=== PATIENT | male | born 1945 | race Caucasian/White ===

== ENCOUNTER 2018-01-27 11:59 | Observation (INO) ==
[2018-01-27 18:04] LABS: Baso % (Auto) 0.5 % (0.0-2.0); Eos # (Auto) 0.6 th/mm3 (0.0-0.4); Eos % (Auto) 8.5 % (0.0-4.0); Hematocrit 40.7 % (39.0-51.0); Hemoglobin 14.4 gm/dL (13.0-17.0); Lymph # (Auto) 1.3 th/mm3 (1.0-4.8); Lymph % (Auto) 19.8 % (9.0-44.0); Mean Corpuscular HGB Conc 35.3 % (32.0-36.0); Mean Corpuscular Hemoglobin 33.9 pg (27.0-34.0); Mean Corpuscular Volume 95.9 fL (80.0-100.0); Mean Platelet Volume 8.5 fL (7.0-11.0); Mono # (Auto) 0.5 th/mm3 (0.0-0.9); Mono % (Auto) 7.1 % (0.0-8.0); Neut # (Auto) 4.2 th/mm3 (1.8-7.7); Neut % (Auto) 64.1 % (16.0-70.0); Platelet Count 212 th/mm3 (150-450); Red Blood Count 4.24 mil/mm3 (4.50-5.90); Red Cell Distribution Width 14.1 % (11.6-17.2); White Blood Count 6.5 th/mm3 (4.0-11.0)
[2018-01-27 18:21] LABS: Albumin 3.9 g/dL (3.4-5.0); Anion Gap 10 meq/L (5-15); Aspartate Aminotransferase 27 U/L (15-37); Blood Urea Nitrogen 11 mg/dL (7-18); Calcium 9.6 mg/dL (8.5-10.1); Carbon Dioxide 25.7 meq/L (21.0-32.0); Chloride 103 meq/L (98-107); Glomerular Filtration Rate 77 mL/min (>89); Glucose,Random 109 mg/dL (74-106); Potassium 3.6 meq/L (3.5-5.1); Sodium 139 meq/L (136-145)
[2018-01-27 18:22] LABS: Alanine Aminotransferase 37 U/L (12-78)
[2018-01-27 18:25] LABS: Alkaline Phosphatase 95 U/L (45-117); Total Protein 8.2 g/dL (6.4-8.2)
--- NOTE | 2018-01-27 18:59 | CT ---
EXAM DATE: 01/27/2018 6:52 PM EDT AGE/SEX: 72 years / Male INDICATIONS: Dyspnea for 2-3 weeks CLINICAL DATA: This is the patient's initial encounter. Patient reports that signs and symptoms have been present for 2 weeks and indicates a pain score of 3/10. MEDICAL/SURGICAL HISTORY: Diabetes. Hypertension. None. RADIATION DOSE: 11.05 CTDI (mGy) COMPARISON: No prior exams available for comparison. TECHNIQUE: Volumetric scanning was performed using a multi-row detector CT scanner during bolus infu jayme of 74 ml Omnipaque 350 (iohexol) nonionic water-soluble contrast as a single exam dose. The garrett a was post processed with a variety of visualization algorithms including full volume maximum intensi ty projection and sliding thin slab reformation. Using automated exposure control and adjustment of the mA and/or kV according to patient size, radiation dose was kept as low as reasonably achievable t o obtain optimal diagnostic quality images. DICOM format image data is available electronically for review and comparison. FINDINGS: Pulmonary Arteries: No filling defects are seen in the pulmonary arteries out to the subsegmental ve ssels. The left and right pulmonary arteries are normal in diameter. Lung: No infiltrates seen. Effusion: None. Mediastinum: Dense atherosclerotic calcifications in the coronaries. Other: The axilla is unremarkable. CONCLUSION: No evidence of pulmonary embolism. Electronically signed by: Sander Valderrama MD 01/27/2018 6:58 PM EDT
--- NOTE | 2018-01-27 19:00 | ED ---
HPI General Chief Complaint: Shortness of Breath/Dyspnea Stated Complaint: sob Time Seen by Provider: 01/27/18 16:57 Source: patient, family and old records reviewed History of Present Illness Is a 72-year-old man who presents to the emergency department complaining of shortness of breath and weakness ongoing for the past couple weeks. He states that he flew to [facility] and took an [employer] cruise on 24 December. He got a little bit sick with some cough cold symptoms. He has had more shortness of breath since he got back. He sees a painting contractor for sleep apnea. He took a Z -Flavio last week which did not really make a difference. He has been having a little bit of worsening lower extremity edema. He saw his painting contractor again and put him on Lasix 2 days ago. Lower extremity swelling is a little bit improved he still significant shortness of breath. He has prominent orthopnea as well. He is obese. He is an extensive smoking history but quit about 6 years ago. No known diagnosis of COPD. Has not been hospitalized for breathing difficulties previously. Related Data Home Medications Medication Instructions Recorded Confirmed amlodipine 10 mg PO DAILY 01/27/18 01/27/18 aspirin 325 mg PO DAILY 01/27/18 01/27/18 clonidine HCl 0.2 mg PO DAILY 01/27/18 01/27/18 coenzyme Q10 [CoQ-10] 100 mg PO DAILY 01/27/18 01/27/18 cyanocobalamin-cobamamide [B-12 500 mcg 01/27/18 Plus] furosemide [Lasix] 40 mg PO DAILY 01/27/18 01/27/18 losartan 100 mg PO DAILY 01/27/18 01/27/18 metformin 500 mg PO DAILY 01/27/18 01/27/18 montelukast [Singulair] 10 mg PO DAILY 01/27/18 01/27/18 omega-3 fatty acids [Fish Oil 3,000 mg PO DAILY 01/27/18 01/27/18 Concentrate] potassium chloride 10 meq PO DAILY 01/27/18 01/27/18 simvastatin 10 mg PO QPM 01/27/18 01/27/18 Allergies Allergy/AdvReac Type Severity Reaction Status Date / Time cephalexin Allergy Severe Itching Unverified 01/27/18 12:10 doxycycline Allergy Severe Itching Unverified 01/27/18 12:10 Penicillins Allergy Severe Itching Verified 01/27/18 12:10 Review of Systems ROS Unobtainable All other systems reviewed negative except as stated in [facility] Medical History Medical History Diabetes (Acute) Hypercholesteremia (Acute) Hypertension (Acute) Sleep apnea (Acute) Surgical History Surgical History History of bladder surgery (Acute) Hx of tonsillectomy (Acute) Social History Social History Substance History: No History of Abuse Smoking Status: Former smoker Tobacco Type: Cigarettes How Often Do You Have a Drink Containing Alcohol: 4 or more times a week Recent Travel in [facility] within the Last 8 Weeks: Yes Recent Out of Country Travel within the Last 8 Weeks: No Substance Abuse Detail Alcohol: Substance Use Status: Active Route Used Substance Abuse: By Mouth Substance Frequency: scotch daily Immunization History Tetanus Immunization: <5 Years Hx Influenza Vaccine This Season: Yes Exam Narrative Exam Narrative: GENERAL: An older 72-year-old man, obese, no acute distress. SKIN: Focused skin assessment warm/dry. HEAD: Atraumatic. Normocephalic. EYES: Pupils equal and round. No scleral icterus. No injection or drainage. ENT: No nasal bleeding or discharge. Mucous membranes pink and moist. NECK: Trachea midline. No JVD. CARDIOVASCULAR: Regular rate and rhythm. No murmur appreciated. RESPIRATORY: No accessory muscle use. Clear to auscultation. Breath sounds equal bilaterally. GASTROINTESTINAL: Abdomen soft, non-tender, nondistended. Hepatic and splenic margins not palpable. MUSCULOSKELETAL: No obvious deformities. Moderate pitting edema bilateral lower extremities. NEUROLOGICAL: Awake and alert. No obvious cranial nerve deficits. Motor grossly within normal limits. Normal speech. PSYCHIATRIC: Appropriate mood and affect; insight and judgment normal. Course Initial Documented Vital Signs Temperature 97.0 F L 01/27/18 12:05 Pulse Rate 74 01/27/18 12:05 Respiratory Rate 18 01/27/18 12:05 Blood Pressure 171/93 H 01/27/18 12:05 Pulse Oximetry 97 01/27/18 12:05 Last Documented Vital Signs Temperature 97.0 F L 01/27/18 12:05 Pulse Rate 71 01/27/18 17:45 Respiratory Rate 22 01/27/18 17:45 Blood Pressure 136/75 01/27/18 17:45 Pulse Oximetry 96 01/27/18 17:45 Medical Decision Making MDM Narrative Medical decision making narrative: 72-year-old male with shortness of breath, lower extremity edema, little bit of cough. He had recent upper respiratory illness but I do not think this is likely COPD. I hear any wheezing. His orthopnea and bilateral lower extremity edema and new onset CHF seems possible. BNP is not really elevated. Also risk for PE. Will check CT pulmonary angiogram. Reassess. Lab Data Lab results reviewed: Yes I reviewed the patient's lab results. Result diagrams: 01/27/18 17:35 01/27/18 17:35 Lab Results 01/27/18 01/27/18 01/27/18 Range/Units 17:35 17:35 17:35 WBC 6.5 (4.0-11.0) th/mm3 RBC 4.24 L (4.50-5.90) mil/mm3 Hgb 14.4 (13.0-17.0) gm/dL Hct 40.7 (39.0-51.0) % MCV 95.9 (80.0-100.0) fL MCH 33.9 (27.0-34.0) pg MCHC 35.3 (32.0-36.0) % RDW 14.1 (11.6-17.2) % Plt Count 212 (150-450) th/mm3 MPV 8.5 (7.0-11.0) fL Neut % (Auto) 64.1 (16.0-70.0) % Lymph % (Auto) 19.8 (9.0-44.0) % Yates % (Auto) 7.1 (0.0-8.0) % Eos % (Auto) 8.5 H (0.0-4.0) % Baso % (Auto) 0.5 (0.0-2.0) % Neut # (Auto) 4.2 (1.8-7.7) th/mm3 Lymph # (Auto) 1.3 (1.0-4.8) th/mm3 Yates # (Auto) 0.5 (0.0-0.9) th/mm3 Eos # (Auto) 0.6 H (0.0-0.4) th/mm3 Baso # (Auto) 0.0 (0.0-0.2) th/mm3 WBC Differential . Differential Comment Auto diff final Sodium 139 (136-145) meq/L Potassium 3.6 (3.5-5.1) meq/L Chloride 103 (98-107) meq/L Carbon Dioxide 25.7 (21.0-32.0) meq/L Anion Gap 10 (5-15) meq/L BUN 11 (7-18) mg/dL Creatinine 0.96 (0.60-1.30) mg/dL Estimated GFR 77 L (>89) mL/min Random Glucose 109 H (74-106) mg/dL Calcium 9.6 (8.5-10.1) mg/dL Total Bilirubin 0.9 (0.2-1.0) mg/dL AST 27 (15-37) U/L ALT 37 (12-78) U/L Alkaline Phosphatase 95 (45-117) U/L Troponin I Less than 0.02 L (0.02-0.05) ng/mL B-Natriuretic Peptide 37 (0-100) pg/mL Total Protein 8.2 (6.4-8.2) g/dL Albumin 3.9 (3.4-5.0) g/dL Imaging Data Radiologist's impression: ITS Impressions Chest CTA 01/27/18 17:26 CONCLUSION: No evidence of pulmonary embolism. CTA: No PE ECG Data Attestation: I personally reviewed and interpreted this ECG as follows: Interpretation: Normal sinus rhythm at a rate of 69, normal axis, normal intervals, no acute ischemia. Discharge Plan Discharge Disposition Patient Disposition: 30 Still Patient Physicians Team ED Provider: Gaston Gold Primary Care Provider: Travon Worley Rxs /Orders / Referrals /Forms Prescriptions: No Action montelukast [Singulair] 10 mg Tablet 10 mg PO DAILY RF: 0 clonidine HCl 0.2 mg Tablet 0.2 mg PO DAILY RF: 0 amlodipine 10 mg Tablet 10 mg PO DAILY RF: 0 losartan 100 mg Tablet 100 mg PO DAILY RF: 0 furosemide [Lasix] 40 mg Tablet 40 mg PO DAILY RF: 0 metformin 500 mg Tablet 500 mg PO DAILY RF: 0 omega-3 fatty acids [Fish Oil Concentrate] 1,000 mg Capsule 3,000 mg PO DAILY RF: 0 aspirin 325 mg Tablet 325 mg PO DAILY RF: 0 simvastatin 10 mg Tablet 10 mg PO QPM RF: 0 potassium chloride 10 mEq Tablet Extended Release 10 meq PO DAILY RF: 0 coenzyme Q10 [CoQ-10] 100 mg Capsule 100 mg PO DAILY RF: 0 cyanocobalamin-cobamamide [B-12 Plus] 5,000-100 mcg Tablet, Sublingual 500 mcg RF: 0 Discharge Interventions Interventions: Vital Signs Last Done: 01/27/18 17:45 Status ED Status: Pending Admission
[2018-01-27] MEDS ORDERED: Bisacodyl 10 MG Supp RECTAL PRN (20:08)
[2018-01-27] MEDS ORDERED: Temazepam 15 MG Capsule PO PRN (20:08)
[2018-01-27] MEDS: Heparin - SQ 10,000 UNITS/ML Vial SQ SCH (20:46)
--- NOTE | 2018-01-27 21:51 | ECG ---
Date Performed: 01/27/2018 Time Performed: 16:54:20 PTAGE: 72 years EKG: Sinus rhythm NORMAL ECG No significant change from prior electrocardiogram. PREVIOUS TRACING : 02/07/2015 18.22 DOCTOR: Hemanth Menjivar Interpretating Date/Time 01/27/2018 21:50:48
[2018-01-28] MEDS: Heparin - SQ 10,000 UNITS/ML Vial SQ SCH (09:10)
--- NOTE | 2018-01-28 10:30 | MB ---
cc: Jarrett Lloyd MD DATE: 01/28/2018 REASON FOR CONSULTATION: Possible congestive heart failure. HISTORY OF PRESENT ILLNESS: The patient is a 72-year-old white male with a history of hypertension, hyperlipidemia, diabetes, COPD, sleep apnea, who presented to the hospital with increasing shortness of breath. The patient states he has had troubles with dyspnea on exertion for the past several months, but his shortness of breath became more severe over the last couple of weeks after returning from a cruise to [place]. Chronically, he has had intermittent pedal edema, which is mostly dependent in nature, but has worsened slightly in the last couple of weeks. In addition, he has had trouble with orthopnea without paroxysmal nocturnal dyspnea. He denies chest pain, palpitations, dizziness, syncope, near syncope, fevers, cough, pleurisy. Since coming into the hospital, his shortness of breath has considerably improved. PAST MEDICAL HISTORY: 1. Hypertension. 2. Hyperlipidemia. 3. Diabetes. 4. Chronic obstructive pulmonary disease. 5. Sleep apnea. CARDIAC MEDICATIONS AT HOME: 1. Aspirin 325 mg daily. 2. Simvastatin 10 mg at bedtime. 3. Potassium chloride 10 mEq daily. 4. Furosemide 40 mg daily. 5. Losartan 100 mg daily. 6. Clonidine 0.2 mg daily. 7. Amlodipine 10 mg daily. ALLERGIES: CEPHALEXIN, DOXYCYCLINE, PENICILLINS. FAMILY HISTORY: The patient's father sustained 2 myocardial infarctions and eventually underwent coronary artery bypass grafting in his 60s. SOCIAL HISTORY: The patient quit smoking about 6 years ago. He denies alcohol abuse. REVIEW OF SYSTEMS: As in the history of present illness, otherwise negative or noncontributory. He also denies headache, abdominal pain, melena, dyspepsia, bright red blood per rectum. PHYSICAL EXAMINATION: VITAL SIGNS: Blood pressure 141/48 with a pulse of 62, respirations 18. GENERAL: He is a well-developed, well-nourished white male, in no acute distress. NECK: Jugular venous pressure is very hard to assess. Carotid pulses are 2+ bilaterally and without definite bruit. CHEST: Reveals clear lungs vicente. CARDIAC: He has a regular rhythm and rate with a grade 2/6 systolic murmur heard throughout the precordium. The S2 heart sound may be diminished particularly at the right upper sternal border. No definite gallop is audible. ABDOMEN: He has a soft, obese, nontender abdomen. Bowel sounds are present. There is no definite hepatosplenomegaly. EXTREMITIES: Reveals no clubbing or cyanosis. There is trace pretibial edema bilaterally. LABORATORY DATA: EKG shows normal sinus rhythm, normal EKG. Includes WBC 6.5, hemoglobin 14.4, platelets 212. Potassium 3.6, BUN 11, creatinine 0.96. Troponin less than 0.02. Brain natriuretic peptide level 37. IMPRESSION: Increased shortness of breath, orthopnea, pedal edema in this 72-year-old white male with a history of hypertension, hyperlipidemia, diabetes, sleep apnea, COPD. Overall, there is no definite evidence for acute congestive heart failure. His CT of the chest reportedly shows no evidence for pulmonary edema. His brain natriuretic peptide level is only 37. Except for minimal pedal edema, his exam is not consistent with congestive heart failure as well. On the other hand, he has a number of risk factors for coronary artery disease including diabetes, hyperlipidemia, hypertension, prior tobacco abuse, family history, and his dyspnea may involve a component of an angina equivalent. EKG is normal. Initial cardiac enzymes are negative. Finally, he does have a systolic murmur on exam suggestive of some degree of aortic stenosis. Echocardiogram is pending. RECOMMENDATIONS: 1. We will check a Lexiscan nuclear stress test to rule out underlying severe coronary artery disease. 2. Check a 2-D echo to assess his left ventricular and valvular function. 3. We will continue his usual home cardiac medications, consider adding a beta danielle. 4. Will followup when cardiac testing has been completed. MD STEPHANIE Akhtar/KOKI , 10:09 AM , 10:28 AM KIRAN
--- NOTE | 2018-01-28 12:54 | P.HPIM ---
History of Present Illness Primary Care Physician: Travon Worley MD History of Present Illness: 72-year-old male with a medical history significant for hypertension, COPD, sleep apnea, diabetes, hyperlipidemia who presented to the hospital with increasing shortness of breath. Patient reports he normally has dependent bilateral lower extremity edema. He was on a cruise in [place] and return in a couple of weeks ago. He reports having increasing shortness of breath to the point where he could not lay down to sleep. He denies having any chest pain. No fever, cough, or chills. He reports that since he arrived last night, he had a good night of sleep and is feeling better this morning. - Diagnosis (1) Shortness of breath (2) Hypertension (3) Sleep apnea (4) Diabetes (5) Lower extremity edema Inpatient Certification: I certify that the inpatient services were ordered in accordance with Medicare regulations governing the order. This includes certification that hospital inpatient services are reasonable and necessary and in the case of services not specified as inpatient-only under 42 CFR 419.22(n), that they are appropriately provided as inpatient services in accordance to with the 2-midnight benchmark under 43 CFR 412.3(e) Review of Systems All other systems reviewed negative except as stated in HPI PMFSH - History History Provided By: Patient - Medical History Medical History: Medical History (Last Reviewed 01/28/18 @ 14:52 by Melissa River MD) Diabetes Hypercholesteremia Hypertension Sleep apnea - Surgical History Surgical History: Surgical History (Last Reviewed 01/28/18 @ 14:52 by Melissa River MD) History of bladder surgery Hx of tonsillectomy - Tobacco History Second Hand Smoke Exposure: No Tobacco Use In Past 30 Days: No Smoking Status: Former smoker Tobacco Type: Smokeless Tobacco - Alcohol History How Often Do You Have a Drink Containing Alcohol: Never - Substance Use History Substance History: No History of Abuse - Substance Use Type Alcohol Status: Active Route Used: By Mouth Frequency: scotch daily - Travel History Recent Travel in the [place] Within the Last 8 Weeks: Yes Recent Travel Out of the Country Within the Last 8 Weeks: No - Immunization History Tetanus Immunization: <5 Years Hx Influenza Vaccine This Season: Yes Medications and Allergies Active Medications: Active Medications Al Hydroxide/Mg Hydroxide (Milk Of [place]helen Liq) 30 ml PO Q12H PRN PRN Reason: Mild Constipation Bisacodyl (Dulcolax Supp) 10 mg RECTAL DAILY PRN PRN Reason: SEVERE CONSITIPATION Carvedilol (Coreg) 3.125 mg PO BID [facility] Heparin Sodium (Porcine) (Heparin Inj) 5,000 units SQ Q12HR LYNDON Last Admin: 01/28/18 09:10 Dose: 5,000 units Lactulose (Lactulose Liq) 30 ml PO DAILY PRN PRN Reason: SEVERE CONSITIPATION Sennosides (Senokot) 17.2 mg PO Q12H PRN PRN Reason: Moderate Constipation Temazepam (Restoril) 15 mg PO HS PRN PRN Reason: INSOMNIA Last Admin: 01/27/18 23:12 Dose: 15 mg Allergies Allergy/AdvReac Type Severity Reaction Status Date / Time cephalexin Allergy Severe Itching Verified 01/27/18 20:35 doxycycline Allergy Severe Itching Verified 01/27/18 20:35 Penicillins Allergy Severe Itching Verified 01/27/18 20:35 Home Medications Medication Instructions Recorded Confirmed Type amlodipine 10 mg PO DAILY 01/27/18 01/27/18 History aspirin 325 mg PO DAILY 01/27/18 01/27/18 History clonidine HCl 0.2 mg PO DAILY 01/27/18 01/27/18 History coenzyme Q10 [CoQ-10] 100 mg PO DAILY 01/27/18 01/27/18 History cyanocobalamin-cobamamide [B-12 500 mcg 01/27/18 History Plus] furosemide [Lasix] 40 mg PO DAILY 01/27/18 01/27/18 History losartan 100 mg PO DAILY 01/27/18 01/27/18 History metformin 500 mg PO DAILY 01/27/18 01/27/18 History montelukast [Singulair] 10 mg PO DAILY 01/27/18 01/27/18 History omega-3 fatty acids [Fish Oil 3,000 mg PO DAILY 01/27/18 01/27/18 History Concentrate] potassium chloride 10 meq PO DAILY 01/27/18 01/27/18 History simvastatin 10 mg PO QPM 01/27/18 01/27/18 History Exam Vital signs: Vital Signs 01/27/18 17:45 01/27/18 20:04 01/27/18 20:52 Temperature Pulse Rate 71 71 Respiratory Rate 22 16 Blood Pressure 136/75 152/80 H Pulse Oximetry 96 97 01/27/18 22:00 01/28/18 00:00 01/28/18 02:58 Temperature 97.8 F 97.9 F Pulse Rate 63 67 Respiratory Rate 18 18 Blood Pressure 137/72 141/68 H Pulse Oximetry 94 L 94 L 95 01/28/18 04:00 01/28/18 08:00 01/28/18 10:24 Temperature Pulse Rate 62 75 82 Respiratory Rate Blood Pressure Pulse Oximetry 95 Intake & Output 01/27/18 01/28/18 01/28/18 18:59 06:59 18:59 Output Total 1325 / 1325 Balance -1325 / -1325 Weight 133.81 kg Output: Urine 1325 / 1325 Other: # Voids 2 Narrative: CONSTITUTIONAL/GENERAL: This is an adequately nourished patient, in no apparent distress. Vital signs reviewed SKIN: No jaundice, rashes, or concerning lesions. Not diaphoretic. HEAD: Atraumatic. Normocephalic. EYES: Pupils equal and round and reactive. Extra ocular motions are intact. No scleral icterus. No injection or drainage. ENT: Hearing grossly normal. Nose without drainage. Throat without visible erythema, exudates, masses, or lesions. NECK: Trachea midline. Neck is supple, non-tender. No palpable thyroid enlargement or nodularity. CARDIOVASCULAR: Normal rate and regular rhythm without murmurs, gallops, or rubs. No JVD. Peripheral pulses 2+ and symmetric. RESPIRATORY/CHEST: Symmetric, unlabored respirations. Breath sounds equal and clear to auscultation bilaterally. No wheezes, crackles, rales, or rhonchi. GASTROINTESTINAL: Abdomen soft, non-tender, non-distended. No hepato- splenomegaly, or palpable masses. No guarding. Bowel sounds present. MUSCULOSKELETAL: 2+ bilateral lower extremity edema. No calf tenderness. No mottling or clubbing. NEUROLOGICAL: Awake and alert. Motor and sensory grossly within normal limits. Follows commands. Move all extremities spontaneously. No focal deficits. PSYCHIATRIC: No obvious mood problems. No apparent hallucinations or other psychotic thought process. Results - Labs CBC & Chem 7: 01/27/18 17:35 01/27/18 17:35 Labs: Short CBC 01/27/18 Range/Units 17:35 WBC 6.5 (4.0-11.0) th/mm3 Hgb 14.4 (13.0-17.0) gm/dL Hct 40.7 (39.0-51.0) % Plt Count 212 (150-450) th/mm3 BMP 01/27/18 17:35 Sodium 139 Potassium 3.6 Chloride 103 Carbon Dioxide 25.7 BUN 11 Creatinine 0.96 Calcium 9.6 Cardiac Enzymes 01/27/18 Range/Units 17:35 Troponin I Less than 0.02 L (0.02-0.05) ng/mL Liver Function 01/27/18 Range/Units 17:35 Total Bilirubin 0.9 (0.2-1.0) mg/dL AST 27 (15-37) U/L ALT 37 (12-78) U/L Alkaline Phosphatase 95 (45-117) U/L Albumin 3.9 (3.4-5.0) g/dL - Imaging Impressions Chest CTA 01/27/18 17:26 CONCLUSION: No evidence of pulmonary embolism. Caprini VTE Risk Assessment Caprini VTE Risk Assessment: No/Low Risk (score <= 1) Caprini Risk Assessment Model: Point Value = 1 Point Value = 2 Point Value = 3 Point Value = 5 Age 41-60 Minor surgery BMI > 25 kg/m2 Swollen legs Varicose veins or History of unexplained or recurrent spontaneous Oral contraceptives or hormone replacement Sepsis (< 1 month) Serious lung disease, including pneumonia (< 1 month) Abnormal pulmonary function Acute myocardial infarction Congestive heart failure (< 1 month) History of inflammatory bowel disease Medical patient at bed rest Age 61-74 Arthroscopic surgery Major open surgery (> 45 min) Laparoscopic surgery (> 45 min) Malignancy Confined to bed (> 72 hours) Immobilizing plaster cast Central venous access Age >= 75 History of VTE Family history of VTE Factor V Leiden Prothrombin [id number] Lupus anticoagulant Anticardiolipin antibodies Elevated serum homocysteine Heparin-induced thrombocytopenia Other congenital or acquired thrombophilia Stroke (< 1 month) Elective arthroplasty Hip, pelvis, or leg fracture Acute spinal cord injury (< 1 month) Prophylaxis Regimen: Total Risk Factor Score Risk Level Prophylaxis Regimen 0-1 Low Early ambulation 2 Moderate Order ONE of the following: *Sequential Compression Device (SCD) *Heparin 5000 units SQ BID 3-4 Higher Order ONE of the following medications: *Heparin 5000 units SQ TID *Enoxaparin/Lovenox 40 mg SQ daily (WT < 150 kg, CrCl > 30 mL/min) *Enoxaparin/Lovenox 30 mg SQ daily (WT < 150 kg, CrCl > 10-29 mL/min) *Enoxaparin/Lovenox 30 mg SQ BID (WT < 150 kg, CrCl > 30 mL/min) AND/OR *Sequential Compression Device (SCD) 5 or more Highest Order ONE of the following medications: *Heparin 5000 units SQ TID (Preferred with Epidurals) *Enoxaparin/Lovenox 40 mg SQ daily (WT < 150 kg, CrCl > 30 mL/min) *Enoxaparin/Lovenox 30 mg SQ daily (WT < 150 kg, CrCl > 10-29 mL/min) *Enoxaparin/Lovenox 30 mg SQ BID (WT < 150 kg, CrCl > 30 mL/min) AND *Sequential Compression Device (SCD) Assessment and Plan - Assessment (1) Shortness of breath Code(s): R06.02 - Shortness of breath Status: Acute Plan: Ruling out CHF as a cause. CTA chest neg for PE. Much improved since arrival. Continue supplemental oxygen, breathing treatment as needed - 2D echocardiogram pending -Continue Lasix. (2) Hypertension Code(s): I10 - Essential (primary) hypertension Status: Chronic Plan: Continue home blood pressure medications. (3) Sleep apnea Code(s): G47.30 - Sleep apnea, unspecified Status: Chronic Plan: Continue CPAP at night. (4) Diabetes Code(s): E11.9 - Type 2 diabetes mellitus without complications Status: Chronic Plan: Continue home medications. (5) Lower extremity edema Code(s): R60.0 - Localized edema Status: Chronic Plan: Worsening per the patient. He has been on Lasix. Possibly dependent edema. Need to rule out CHF. 2D echo as above. H&P: Quality - VTE Deep Vein Thrombosis/Pulmonary Embolism Present on Admission: No (4) Diabetes Qualifiers: Diabetes mellitus type: type 2
--- NOTE | 2018-01-28 13:46 | ECHRPT ---
Indication: CHRONIC PULM HEART DISEASE CONCLUSIONS Moderately dilated left ventricle. Wall thickness is normal. The left ventricular systolic function is normal with an estimated ejection fraction in the range of 55-60%. Mitral annular calcification is present. Trace mitral valve regurgitation. Aortic valve sclerosis is present. The estimated pulmonary arterial pressure is 20 mmHg. BP: / HR: Rhythm: MEASUREMENTS (Male / Female) Normal Values Technical Quality: 2D ECHO LV Diastolic Diameter PLAX 6.1 cm 4.2 - 5.9 / 3.9 - 5.3 cm LV Systolic Diameter PLAX 4.9 cm IVS Diastolic Thickness 1.2 cm 0.6 - 1.0 / 0.6 - 0.9 cm LVPW Diastolic Thickness 0.9 cm 0.6 - 1.0 / 0.6 - 0.9 cm LV Relative Wall Thickness 0.4 RV Internal Dim ED PLAX 2.3 cm DOPPLER AV Peak Velocity 227.0 cm/s AV Peak Gradient 20.6 mmHg LVOT Peak Velocity 101.0 cm/s LVOT Peak Gradient 4.1 mmHg Mitral E Point Velocity 84.5 cm/s Mitral A Point Velocity 51.0 cm/s Mitral E to A Ratio 1.7 TR Peak Velocity 157.0 cm/s TR Peak Gradient 9.9 mmHg Right Atrial Pressure 10.0 mmHg Pulmonary Artery Systolic Pressu 19.9 mmHg Right Ventricular Systolic Press 19.9 mmHg FINDINGS LEFT VENTRICLE Moderately dilated left ventricle. Wall thickness is normal. The left ventricular systolic function is normal with an estimated ejection fraction in the range of 55-60%. RIGHT VENTRICLE Normal right ventricular size and systolic function. LEFT ATRIUM The left atrial size is normal. RIGHT ATRIUM The right atrial size is normal. ATRIAL SEPTUM Normal atrial septal thickness without atrial level shunting by limited color doppler interrogation. AORTA The aortic root and proximal ascending aorta are normal in size on limited imaging. MITRAL VALVE Mitral annular calcification is present. Trace mitral valve regurgitation. AORTIC VALVE Aortic valve sclerosis is present. TRICUSPID VALVE The estimated pulmonary arterial pressure is 20 mmHg. PULMONARY VALVE No pulmonary valve regurgitation or stenosis. VESSELS The inferior vena cava is normal in size. PERICARDIUM No pericardial effusion. Gaston Miller MD, FACC (Electronically Signed) Final Date:28 January 2018 13:44
[2018-01-28] MEDS ORDERED: Regadenoson Inj 0.4 MG/5 ML Syringe IV.PUSH ONE (13:50)
--- NOTE | 2018-01-28 14:44 | NM ---
EXAM DATE: 01/28/2018 2:36 PM EDT AGE/SEX: 72 years / Male INDICATIONS:Congestive heart failure. . Dyspnea and weakness. Lower extremity swelling. CLINICAL DATA: This is the patient's initial encounter. Patient reports that signs and symptoms have been present for 2 weeks and indicates a pain score of 0/10. MEDICAL/SURGICAL HISTORY: Diabetes mellitus type II. Hypercholesterolemia. Hypertension. Tons illectomy. Bladder. COMPARISON: No prior exams available for comparison. DOSE: 10.0 mCi Tc 99m Myoview at rest 30.0 mCi [id number] at stress 0.4 mg Lexiscan STRESS SYMPTOMS: Flushed feeling. EJECTION FRACTION: 52 % TECHNIQUE: The patient underwent pharmacologic stress with infusion of prescribed dose. Continuous ECG tracing was monitored during stress. Gated SPECT imaging was performed after stress and conventi onal SPECT imaging was performed at rest. The examination was performed on a SPECT /CT scanner, both attenuation and non-corrected datasets were reviewed. FINDINGS: Distribution: The maximum perfused segment at stress is in the septal wall. Perfusion Study: The pattern of perfusion at stress is within normal limits. Gated Study: There are intact wall motion and wall thickening without hypokinetic or dyskinetic segm ents. The ejection fraction is calculated at 52%. RISK CATEGORY: Low (<1% Annual Motality Rate) CONCLUSION: 1. Unremarkable myocardial perfusion examination. Electronically signed by: Brandon Garvey MD 01/28/2018 2:43 PM EDT
[2018-01-28] MEDS ORDERED: amLODIPine 10 MG Tablet PO SCH (15:00)
--- NOTE | 2018-01-28 15:59 | P.PNADD ---
Addendum to Inpatient Note Additional information: Nuclear stress test imagining reportedly normal. Echo also unremarkable except mild aortic valve sclerosis. The left ventricle is NOT moderately dilated as reported. Patient clear for discharge from a cardiac standpoint.
[2018-01-29] MEDS ORDERED: Furosemide 40 MG Tablet PO SCH (09:00)
[2018-01-29] MEDS ORDERED: Aspirin 325 MG Tablet PO SCH (09:00)
[2018-01-29] MEDS ORDERED: Montelukast 10 MG Tablet PO SCH (09:00)
== END 2018-01-28 17:05 | disposition home or self-care (01) ==
LOC: NEPGCP 11:59 → NEDA 11:59 → NEPD 11:59 → NEDA 21:53 → NEPGCP 21:53
PROVIDERS: ADMIT Family Medicine; ATTEND Family Medicine